=== PATIENT | male | born 1960 | race Two or more races ===

== ENCOUNTER 2018-03-07 10:37 | Outpatient (CLI) | payer OTHER | END 2018-03-07 14:53 | disposition home or self-care (01) | LOC: MRI 10:37 → TOM 10:37 → MRI 14:53 | DX: M54.5 Low back pain (principal) | CPT/HCPCS: 72148 ==

== ENCOUNTER → 2018-06-11 | Outpatient (CLI) | payer OTHER | END | disposition home or self-care (01) | LOC: SONOGRAMA 06-08 12:45 | DX: K76.0 Fatty (change of) liver, not elsewhere classified (principal) ==

== ENCOUNTER 2019-02-13 11:16 | Emergency (ER) | payer OTHER ==
[~2019-02-13] VITALS: Ht 175.3 cm; Wt 77.1 kg
[2019-02-13] MEDS ORDERED: IRBESARTAN-HCT1 EACH (11:21)
[2019-02-14] MEDS ORDERED: VOLTAREN-XR100 MG PO (08:04)
[2019-02-14] MEDS ORDERED: CYCLOBENZAPRINE10 MG PO (08:04)
== END 2019-02-14 09:15 | disposition home or self-care (01) ==
LOC: ER 11:16
DX: M54.5 Low back pain (principal); I10 Essential (primary) hypertension

== ENCOUNTER 2019-11-10 17:00 | Emergency (ER) | payer OTHER ==
[~2019-11-10] VITALS: Ht 170.2 cm; Wt 68.9 kg
[~2019-11-10 17:00] MED LIST: CYCLOBENZAPRINE10 MG PO; IRBESARTAN-HCT1 EACH; VOLTAREN-XR100 MG PO
[2019-11-10] MEDS ORDERED: CIPRO500 MG PO (17:51)
== END 2019-11-10 22:33 | disposition home or self-care (01) ==
LOC: ER 17:00
DX: K57.92 Diverticulitis of intestine, part unspecified, without perforation or abscess without bleeding (principal)

== ENCOUNTER → 2020-01-15 | Outpatient (CLI) | payer OTHER ==
[~2020-01-15] MED LIST changes: +CIPRO500 MG PO
== END | disposition home or self-care (01) ==
LOC: RX STUDY 08:38
DX: K27.3 Acute peptic ulcer, site unspecified, without hemorrhage or perforation (principal)